=== PATIENT | male | born 1950 | race Caucasian/White ===

== ENCOUNTER 2020-01-26 13:24 | Emergency (ER) | payer MEDICARE, BC ==
[~2020-01-26] VITALS: Ht 185.4 cm; Wt 136.4 kg
[2020-01-26 13:57] LABS: BASOPHILS % (AUTO) 0.4 % (0-1); EOSINOPHILS # (AUTO) 0.1 X10'3 (0-0.9); EOSINOPHILS % (AUTO) 1.5 % (0-6); HEMATOCRIT 33.4 % (42.0-52.0); HEMOGLOBIN 11.1 g/dl (14.0-17.9); LYMPHOCYTES # (AUTO) 1.5 X10'3 (1.1-4.8); LYMPHOCYTES % (AUTO) 22.4 % (21-51); MEAN CORPUSCULAR HEMOGLOBIN 30.5 PG (27.0-31.0); MEAN CORPUSCULAR HGB CONC 33.2 g/dL (33.0-36.5); MEAN CORPUSCULAR VOLUME 91.7 FL (78-98); MEAN PLATELET VOLUME 7.1 FL (7.4-10.4); MONOCYTES # (AUTO) 0.7 X10'3 (0-0.9); MONOCYTES % (AUTO) 9.8 % (2-12); NEUTROPHILS # (AUTO) 4.4 X10'3 (1.8-7.7); NEUTROPHILS % (AUTO) 65.9 % (42-75); PLATELET COUNT 365 X10'3 (140-440); RED BLOOD COUNT 3.64 X10'6 (4.70-6.10); RED CELL DISTRIBUTION WIDTH 13.9 % (11.5-14.5); WHITE BLOOD COUNT 6.7 X10'3 (4.5-11.0)
[2020-01-26 14:10] LABS: ALANINE AMINOTRANSFERASE 32 U/L (12-78); ALBUMIN 2.6 G/DL (3.4-5.0); ALBUMIN/GLOBULIN RATIO 0.6 (1.1-1.5); ALKALINE PHOSPHATASE 100 IU/L (46-116); ANION GAP 8 (8-16); ASPARTATE AMINO TRANSFERASE 16 U/L (10-37); BILIRUBIN,TOTAL 0.4 MG/DL (0.1-1.0); BLOOD UREA NITROGEN 20 MG/DL (7-18); BUN/CREATININE RATIO 17.5 (5.4-32.0); CALCIUM 8.8 MG/DL (8.5-10.1); CHLORIDE 101 MMOL/L (99-107); CREATININE 1.14 MG/DL (0.60-1.10); GLUCOSE 284 MG/DL (70-104); POTASSIUM 4.4 MMOL/L (3.5-5.1); SODIUM 136 MMOL/L (135-145); TOTAL CARBON DIOXIDE 26.7 MMOL/L (24-32); TOTAL PROTEIN 7.3 G/DL (6.4-8.2); eGFR 64 ML/MIN
[2020-01-26 16:10] VITALS: BP 142/64
== END 2020-01-26 16:13 | disposition home or self-care (01) ==
LOC: ER 13:24
DX: S30.1XXA Contusion of abdominal wall, initial encounter (principal); R91.1 Solitary pulmonary nodule; R10.9 Unspecified abdominal pain; E11.9 Type 2 diabetes mellitus without complications; R06.02 Shortness of breath; X58.XXXA Exposure to other specified factors, initial encounter; Y93.89 Activity, other specified; Y92.89 Other specified places as the place of occurrence of the external cause; Y99.8 Other external cause status
CPT/HCPCS: 36415; 71045; 80053; 84484; 85025; 93005; 99285

== ENCOUNTER 2022-05-08 12:20 | Day surgery (SDC) | payer MEDICARE, BC ==
[2022-05-08] VITALS (8 sets, daily range): BP systolic 126–174; BP diastolic 50–87
[~2022-05-08] VITALS: Ht 182.9 cm; Wt 127.3 kg
[~2022-05-08 12:20] MED LIST: AMA1T PO; AMIO200T67 PO; APIX5TAB3 PO; ATOR20TA66 PO; INSU300I SQ; LOP25T PO; METF500T PO; PANT40TA54 PO; VENL25TA48 PO
[2022-05-08] MEDS ORDERED: LORazepam 0.5 MG tablet PO PRN (12:40)
[2022-05-08] MEDS ORDERED: diphenhydrAMINE 25mg capsule PO PRN (12:40)
[2022-05-08] MEDS ORDERED: normal saline 1,000 ML IV SCH (12:40)
[2022-05-08] MEDS ORDERED: MULT-1085 PO (13:05)
[2022-05-08] MEDS ORDERED: AMIO200T61 PO (13:05)
[2022-05-08] MEDS ORDERED: ASPI81TA52 PO (13:05)
[2022-05-08] MEDS ORDERED: METO-384 PO (13:05)
[2022-05-08] MEDS ORDERED: LIDOcaine 1% 30ml preserv. free vial ONE (15:31)
[2022-05-08] MEDS ORDERED: midazolam 1 mg/ML 2ml injection ONE (15:31)
[2022-05-08] MEDS ORDERED: fentaNYL/PF 50MCG/1 ML 2ML syringe ONE (15:31)
[2022-05-08] MEDS ORDERED: iohexol 350MG/ML 100ml bottle IV ONE ×3 (15:31→16:09)
[2022-05-08] MEDS ORDERED: hydrALAZINE 20mg/ml inj. IV ONE (16:33)
[2022-05-08] MEDS ORDERED: HYDROcodone/acetaminophen 10/325mg tab PO PRN (17:25)
[2022-05-08] MEDS ORDERED: nitroGLYCERIN 0.4mg SUBLingual tab SL PRN (17:25)
[2022-05-08] MEDS ORDERED: OXAZEpam 15mg capsule PO PRN (17:25)
[2022-05-08] MEDS ORDERED: proCHLORperazine 10 MG/2 ml inj IV PRN (17:25)
[2022-05-08] MEDS ORDERED: ondansetron/PF 4mg/2ml inj IV PRN (17:25)
[2022-05-08] MEDS ORDERED: HYDROcodone/acetaminophen 5mg/325mg tablet PO PRN (17:25)
[2022-05-08] MEDS ORDERED: metoprolol tartrate 25mg tablet PO SCH (20:00)
== END 2022-05-08 19:18 | disposition home or self-care (01) ==
LOC: SSTAY O 12:20
PROVIDERS: ATTEND Student in an Organized Health Care Education/Training Program
DX: I25.10 Atherosclerotic heart disease of native coronary artery without angina pectoris (principal); I48.91 Unspecified atrial fibrillation; I25.2 Old myocardial infarction; G47.33 Obstructive sleep apnea (adult) (pediatric); I50.9 Heart failure, unspecified; I11.0 Hypertensive heart disease with heart failure; E11.9 Type 2 diabetes mellitus without complications; Z79.899 Other long term (current) drug therapy; Z98.890 Other specified postprocedural states
CPT/HCPCS: 82948; 93005; 93459; 93567; 99152; 99153; C1760; C1769; J0360; J1644; J2250; J3010; J3490; J7030; Q0163; Q9967; A4620; A6258